=== PATIENT | female | born 1965 | race Caucasian/White ===

== ENCOUNTER 2022-10-15 04:17 | Outpatient (CLI) | payer BC, SELFPAY ==
[2022-10-15 16:12] LABS: Abs Immature Grans 0.02 10^3/uL (0.0-0.06); Absolute Basophil Count 0.08 10^3/uL (0.0-0.2); Absolute Eosinophil Count 0.26 10^3/uL (0.0-0.7); Absolute Lymphocyte Count 2.04 10^3/uL (1.2-3.4); Absolute Monocyte Count 0.67 10^3/uL (0.1-0.8); Absolute Neutrophil Count 3.37 10^3/uL (1.2-6.7); Basophils % 1.2; HCT 31.6 % (36.0-46.0); HGB 10.8 g/dL (11.2-15.7); Immature Grans % 0.3; Lymphocytes % 31.7; MCH 30.6 pg (27.0-33.0); MCHC 34.2 % (32.0-36.0); MCV 90 fL (80-95); MPV 9.3 fL (8.0-11.0); Monocytes % 10.4; Neutrophils % 52.4; Platelet Count 205 10^3/uL (130-400); RBC 3.53 10^6/uL (3.93-5.22); RDW 14.1 % (11.7-14.6); WBC 6.44 10^3/uL (4.4-10.8)
[2022-10-15 17:12] LABS: ALT 54 U/L (14-59); AST 50 U/L (15-37); Albumin 3.6 g/dL (3.4-5.0); Alkaline Phosphatase 132 U/L (46-116); Anion Gap 7.8 mmol/L (3-11); BUN 16 mg/dL (7-18); Bilirubin, Total 0.3 mg/dL (0.2-1.0); CO2 31.2 mmol/L (21.0-32.0); CREATININE 0.9 mg/dL (0.55-1.02); Calcium 9.2 mg/dL (8.5-10.1); Chloride 100 mmol/L (98-107); Estimated GFR 74.57 (mL/min/1.73m2); Glucose 80 mg/dL (74-106); Potassium 3.7 mmol/L (3.5-5.1); Sodium 139 mmol/L (136-145); Total Protein 7.1 g/dL (6.4-8.2)
== END 2022-10-15 04:18 | disposition home or self-care (01) ==
LOC: LBO 04:18
DX: C50.512 Malignant neoplasm of lower-outer quadrant of left female breast (principal); Z17.0 Estrogen receptor positive status [ER+]
CPT/HCPCS: 36415; 80053; 85025